=== PATIENT | female | born 1935 | race Caucasian/White ===

== ENCOUNTER 2019-11-07 10:17 | Outpatient (CLI) | payer MEDICARE, OTHER, SELFPAY ==
--- NOTE | 2019-11-07 | CT_ITS ---
WS: [id number] CT ANGIOGRAM CEREBRAL ARTERIES Noncontrast head HISTORY: PARKINSONIAN TREMOR TECHNIQUE: Pre and postcontrast imaging through the brain. CT angiogram is performed of the cerebral arteries. During arterial injection imaging is obtained from the skull vertex to the skull base in 1. 25 mm imaging. Coronal and sagittal reformats are submitted. Additional multi planar reformats of the cerebral arteries are submitted, MIP imaging also reviewed. All CT scans at [facility] use at least one of these dose optimization techniques: automated exposure control; mA and/or kV adju stment per patient size (includes targeted exams where dose is matched to clinical indication); or it erative reconstruction. CONTRAST: Omnipaque 350; 95 mL IV. DLP: 1249.49 mGycm COMPARISON: MRI brain 05/11/2019 Noncontrast imaging of the brain is first performed. There is no hemorrhage or mass effect. Mild atro phy and chronic ischemic disease. Intracranial vertebral arteries: Normal with no significant atherosclerosis. Basilar artery: No significant stenosis or occlusion. No aneurysm. Intracranial Internal carotid arteries: Internal carotid arteries are patent. Scattered calcified grisel que in the cavernous sinuses is mild. No aneurysm. The area of concern on the prior MRI corresponds t o a pneumatization of the LEFT sphenoid bone. This is asymmetric to the RIGHT. Middle cerebral arteries: Normal. Anterior cerebral arteries and ACOM: Normal. Posterior cerebral arteries and PCOM's: Normal. Dural venous sinuses are normally enhancing. Mastoid air cells: Normal. Paranasal sinuses: Normal. Calvarium: Normal.
--- NOTE | 2019-11-07 10:30 | CT_ITS ---
WS: [id number] CT ANGIOGRAM CEREBRAL ARTERIES Noncontrast head HISTORY: PARKINSONIAN TREMOR TECHNIQUE: Pre and postcontrast imaging through the brain. CT angiogram is performed of the cerebral arteries. During arterial injection imaging is obtained from the skull vertex to the skull base in 1. 25 mm imaging. Coronal and sagittal reformats are submitted. Additional multi planar reformats of the cerebral arteries are submitted, MIP imaging also reviewed. All CT scans at [facility] use at least one of these dose optimization techniques: automated exposure control; mA and/or kV adju stment per patient size (includes targeted exams where dose is matched to clinical indication); or it erative reconstruction. CONTRAST: Omnipaque 350; 95 mL IV. DLP: 1249.49 mGycm COMPARISON: MRI brain 05/11/2019 Noncontrast imaging of the brain is first performed. There is no hemorrhage or mass effect. Mild atro phy and chronic ischemic disease. Intracranial vertebral arteries: Normal with no significant atherosclerosis. Basilar artery: No significant stenosis or occlusion. No aneurysm. Intracranial Internal carotid arteries: Internal carotid arteries are patent. Scattered calcified griesl que in the cavernous sinuses is mild. No aneurysm. The area of concern on the prior MRI corresponds t o a pneumatization of the LEFT sphenoid bone. This is asymmetric to the RIGHT. Middle cerebral arteries: Normal. Anterior cerebral arteries and ACOM: Normal. Posterior cerebral arteries and PCOM's: Normal. Dural venous sinuses are normally enhancing. Mastoid air cells: Normal. Paranasal sinuses: Normal. Calvarium: Normal. CT/CT angio head [id number] IMPRESSION: 1. No intracranial pseudoaneurysm. 2. The area of concern on the recent MRI corresponds to pneumatization of the LEFT sphenoid bone. 3. Minimal atherosclerosis intracranial carotid arteries.
[2019-11-07] MEDS: iohexol 350 mg/mL 100 mL Btl IV (11:13)
[2019-11-07 13:27] LABS: Blood Urea Nitrogen 15 mg/dL (8-23)
== END 2019-11-07 10:18 | disposition home or self-care (01) ==
LOC: RADWPI 10:28
PROVIDERS: Family Provider Family Medicine; PCP Family Medicine; Visit Provider Specialist
DX: G20 Parkinson's disease (principal)
CPT/HCPCS: 70450; 70496; 82565; 84520; Q9967

== ENCOUNTER → 2020-01-23 16:01 | Outpatient (BNVA) | payer MEDICARE, OTHER, SELFPAY | PROVIDERS: Family Provider Family Medicine; Visit Provider Specialist | DX: G20 Parkinson's disease (principal) | CPT/HCPCS: 99213 ==

== ENCOUNTER → 2021-02-11 14:37 | Outpatient (BNVA) | payer MEDICARE, OTHER, SELFPAY | PROVIDERS: Family Provider Family Medicine; Visit Provider Specialist | DX: G20 Parkinson's disease (principal) | CPT/HCPCS: 99214; 99215 ==

== ENCOUNTER → 2021-05-22 11:34 | Outpatient (BNVA) | payer MEDICARE, OTHER, SELFPAY | PROVIDERS: Family Provider Family Medicine; Visit Provider Specialist | DX: G20 Parkinson's disease (principal) | CPT/HCPCS: 99214 ==

== ENCOUNTER → 2021-12-17 10:51 | Outpatient (BNVA) | payer MEDICARE, OTHER, SELFPAY | PROVIDERS: Family Provider Family Medicine; PCP Family Medicine; Visit Provider Specialist | DX: G20 Parkinson's disease (principal); F02.80 Dementia in other diseases classified elsewhere, unspecified severity, without behavioral disturbance, psychotic disturbance, mood disturbance, and anxiety; F41.9 Anxiety disorder, unspecified | CPT/HCPCS: 96116; 99214; 99215 ==